=== PATIENT | male | born 1970 | race Caucasian/White ===

== ENCOUNTER 2024-06-26 12:48 | Outpatient (REF) | payer OTHER, SELFPAY ==
--- NOTE | ~2024-06-26 | MR_ITS ---
EXAMINATION: MR LUMBAR SPINE WITHOUT CONTRAST CLINICAL INFORMATION: Degenerative disc disease, most pronounced at L4-5 COMPARISON: None available. TECHNIQUE: MRI of the lumbar spine was obtained using routine sequences without contrast. FINDINGS: There are 5 nonrib-bearing lumbar-type vertebrae. Mild levocurvature of the lumbar spine. Mild retrolisthesis at L3-4 and L5-S1. Diffuse edema involving the opposing L4 and L5 vertebrae with abnormal signal extending into the disc space at this level as well as the pedicles bilaterally. There is abnormal signal and thickening extending into the ventral epidural space at this level. The vertebral body heights are preserved. Multilevel disc desiccation with severe disc height loss at L4-5. Multilevel endplate osteophytosis. The visualized spinal cord is normal in caliber. No abnormal cord signal. The conus medullaris terminates at L1. T12-L1: Small disc bulge. No significant spinal canal or neural foraminal narrowing. L1-2: No significant spinal canal or neural foraminal narrowing. L2-3: Diffuse disc bulge and bilateral facet arthrosis. No significant spinal canal or neural foraminal narrowing. L3-4: Diffuse disc bulge and bilateral facet arthrosis. No significant spinal canal stenosis. Mild right neural foraminal narrowing. L4-5: Diffuse disc bulge, ligamentum flavum hypertrophy, and bilateral facet arthrosis. Mild spinal canal stenosis. Moderate to severe right and moderate left neural foraminal narrowing with the disc abutting the exiting L4 nerve roots bilaterally. L5-S1: Diffuse disc bulge and left facet arthrosis. Moderate to severe left and mild right neural foraminal narrowing with the disc abutting the exiting L5 nerve roots bilaterally. No significant spinal canal stenosis. The paravertebral soft tissues are unremarkable. MR/MR lumbar spine wo con IMPRESSION: 1. Diffuse edema involving the opposing L4 and L5 vertebrae and pedicles with abnormal signal extending into the disc space at this level. Additionally, there is abnormal signal and thickening extending into the ventral epidural space at this level. Findings are concerning for discitis osteomyelitis in the appropriate clinical setting. Reactive degenerative changes can also have this appearance. 2. Multilevel lumbar spondylosis as described above, most pronounced at L4-5 where there is mild spinal canal stenosis and moderate to severe right and moderate left neural foraminal narrowing with the disc abutting the exiting L4 nerve roots bilaterally. 3. At L5-S1, there is moderate to severe left and mild right neural foraminal narrowing with the disc abutting the exiting L5 nerve roots bilaterally. Electronically signed by: Fercho Wells MD 06/26/2024 03:39 PM [facility]
== END 2024-06-26 12:49 | disposition home or self-care (01) ==
LOC: HO.MRI 12:48
PROVIDERS: PCP Family Medicine; Visit Provider Family Medicine
DX: M51.362 Other intervertebral disc degeneration, lumbar region with discogenic back pain and lower extremity pain (principal); M54.16 Radiculopathy, lumbar region
CPT/HCPCS: 72148

== ENCOUNTER 2024-07-15 12:36 | Outpatient (AMB) | payer OTHER, SELFPAY ==
--- NOTE | 2024-07-15 12:59 | A.SPINEOV_ITS ---
Vital Signs 07/15/24 13:00 Height 5 ft 8 in Weight 165 lb BMI 25.1 Intake Visit Reasons: lumbar degenerative disc disease Intake Note: Mr. Grove is here today c/o low back pain. Time Recorder Required: No Allergies No Known Allergies Allergy (Verified 07/15/24 13:00) Physical Exam Vital Signs: BMI result Body Mass Index 25.1 Assessment & Plan Assessment & Plan (1) Osteomyelitis: Code(s): M86.9 - Osteomyelitis, unspecified Category: Medical Plan Dear Dr Casillas, Thank you for referring Mr Grove to our office today. He is a 53-year-old gentleman who has had on and off back issues for many years, who ended up with L4-5 diskitis/osteomyelitis, epidural abscess with right psoas abscess in May after what was sounds like an infected sebaceous cyst on his thigh that seated to his lumbar spine. At the time he is having fever back pain, inability to walk or move in his house. He had been to the emergency room a few times in it sounds like he was getting brushed off as a drug addict, and subsequently ended up with transfer to [facility] with diagnosis of the diskitis/osteomyelitis. While he was there, he was put on IV cefazolin and was seen by infectious disease and the neurosurgery team. He recently completed a 6 week course of antibiotics. His pain is significantly better than what it was at the time of the infection but it is not completely gone. He does not have any radicular pain going down his legs at this time. He has no loss of function of the legs. It is primarily a back pain situation. He is on OxyContin, oxycodone, gabapentin, baclofen and meloxicam to treat it. No cauda equina symptoms. 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 He had a right medial knee replacement, left middle finger amputation., and ORIF of his right forearm. Social hx: Denies any history of drug abuse, he does smoke cigarettes and marijuana daily Medications: As above, gabapentin, baclofen, meloxicam, OxyContin, oxycodone Allergies: None Physical exam: He is able to stand up out of a chair on his own, he has some limitations with right hip flexion but otherwise strength in the lower extremities is normal, reflexes 2+ at the patella, 1+ at the Achilles. No clonus. Upper extremity strength and reflexes are normal. Imaging review: There 2 lumbar MRIs, 1 from May 1 from June. Both show evidence of osteomyelitis/diskitis at L4-5 with epidural abscess. There is some resolution of the psoas abscess on the June MRI. There is compression of the left L5 nerve in the lateral recess as well as other degenerative changes causing narrowing of the foramen throughout the lumbar spine. Impression: 53-year-old male with history of chronic back issues, developed what sounds like osteomyelitis/diskitis/epidural abscess with right psoas abscess after he had an infected sebaceous cyst on his thigh which seated to that area. The infection seems to be resolving. He tells me that the his inflammatory numbers in his white count coming down closer to normal. His pain is better and he has no trouble walking because of radicular symptoms and weakness in his legs. He does have trouble with activity because of the back pain but no neurological radiculopathy type symptoms down the legs. He completed his course of 6 weeks of IV cefazolin. From the standpoint of his infection, he should continue to monitor for symptoms fever, worsening of back pain etc. but it sounds like the treatment worked well. It is hard to know what to make of the MRI done so recently because it was done in the middle of treatment and as we know the MRIs delayed by least a few weeks from the actual clinical course with diskitis/osteomyelitis. We generally recommend just trending ESR and CRP and following a clinical exam as opposed to doing more imaging in the short term. He was asking about surgery. From the standpoint of the infection, the IV antibiotics have treated that so he does not need any kind of wash out or decompression to facilitate the recovery. With regard to the chronic pain situation from the infection in his previous DDD, we would need to have many months of healing and recovery take place before we can make a surgical decision. There is still quite a bit of remodeling of the spine to take place and despite his numbers looking excellent on his lab work, there is high risk for placing instrumentation into that space. Therefore, typically we would wait many months and follow with serial imaging further down the road. I will review his imaging with Dr. Bowden to see if he has any other thoughts but usually that is the game plan and we reassess down the road. Thank you for allowing us to care for your patient. The total time spent with this visit with this patient was 45 minutes reviewing history, physical exam, lumbar imaging review, and implementation of treatment plan or further diagnostic testing Jeff Bowden MD,PhD [facility] Coding Level of Care Code New Pt Level 4 (57652) Diagnoses Osteomyelitis M86.9
[2024-07-15 13:00] VITALS: BMI 25.1
--- OUTSIDE RECORDS SUMMARY | 2024-07-17 15:28 | XMS_ITS ---
Author Name [facility] Organization Unknown Results Test Name/Text Value Interpretation Date Range Source Neutrophils num Bld Auto 8.78Thou/uL Above high normal [id number] 2 - 7.5 [facility] Monocytes num Bld Auto 1.02Thou/uL Normal [id number] 0.2 - 1.5 [facility] Eosinophil num Bld Auto 0.07Thou/uL Normal [id number] 0 - 0.7 [facility] WBC num Bld Auto 12.4Thou/uL Above high normal [id number] 4 - 11 [facility] MCHC RBC Auto-mCnc 33.9g/dL Normal 30 - 36 [facility] Monocytes/leuk NFr Bld Auto 8.3% Normal [id number] [facility] Hct VFr Bld Auto 42.2% Normal [id number] 39 - 54 [facility] RBC num Bld Auto 4.41Mil/uL Below low normal [id number] 4. 5 - 6.2 [facility] RDW RBC Auto-Rto 12.7% Normal [id number] 11.5 - 14. 5 [facility] PMV Bld Auto 9.3fL Normal [id number] 7.5 - 12.[address] Eosinophil/leuk NFr Bld Auto 0.6% Normal [id number] [facility] MCH RBC Qn Auto 32.4pg Above high normal [id number] 27 - 31 [facility] Basophils/leuk NFr Bld Auto 0.2% Normal [id number] [facility] Basophils num Bld Auto 0.03Thou/uL Normal [id number] 0 - 0.2 [facility] Platelet num Bld Auto 510Thou/uL Above high normal [id number] 150 - 450 [facility] Neutrophils/leuk NFr Bld Auto 71% Normal [id number] [facility] MCV RBC Auto 96fL Normal [id number] 80 - 100 [facility] T Lymphocytes/leuk NFr Bld Auto 19.4% Normal [id number] [facility] Lymphocytes num Bld Auto 2.4Thou/uL Normal [id number] 1.5 - 4.5 [facility] Imm Granulocytes/leuk NFr Bld Auto 0.5% Normal [id number] [facility] Hgb Bld-mCnc 14.3g/dL Normal [id number] 13 - 17.7 [facility] T Imm Granulocytes num Bld Auto 0.06Thou/uL Normal [id number] 0 - 0.1 [facility] Calcium SerPl-mCnc 9.4mg/dL Normal [id number] 8.7 - 10 .5 [facility] BUN SerPl-mCnc 15mg/dL Normal [id number] 8 - 21 HH CCT Creat SerPl-mCnc 0.7mg/dL Normal [id number] 0.5 - 1.3 [facility] GFR/BSA.pred SerPlBld [id number] 90 Normal [id number] 59 - [facility]CT Chloride SerPl-sCnc 97mmol/L Below low normal [id number] 98 - 107 [facility] BUN/Creat SerPl 21Ratio Normal [id number] 10 - 25 H HCCT CO2 SerPl-sCnc 28mmol/L Normal [id number] 22 - 33 HH CCT Anion Gap Bld-sCnc 14 Normal [id number] 7 - 17 [facility] Potassium SerPl-sCnc 4.6mmol/L Normal [id number] 3.4 - 5.3 [facility] Glucose SerPl-mCnc 110mg/dL Above high normal [id number] 65 - 99 [facility] Sodium SerPl-sCnc 139mmol/L Normal [id number] 136 - 145 [facility] RBC num Bld Auto 4.46Mil/uL Below low normal [id number] 4. 5 - 6.2 [facility] RDW RBC Auto-Rto 12.7% Normal [id number] 11.5 - 14. 5 [facility] PMV Bld Auto 9.4fL Normal [id number] 7.5 - 12.[address] MCH RBC Qn Auto 32.7pg Above high normal [id number] 27 - 31 [facility] WBC num Bld Auto 12.3Thou/uL Above high normal [id number] 4 - 11 [facility] Platelet num Bld Auto 479Thou/uL Above high normal [id number] 150 - 450 [facility] MCHC RBC Auto-mCnc 34.3g/dL Normal 30 - 36 [facility] Hct VFr Bld Auto 42.6% Normal [id number] 39 - 54 [facility] MCV RBC Auto 96fL Normal [id number] 80 - 100 [facility] T Hgb Bld-mCnc 14.6g/dL Normal [id number] 13 - 17.7 [facility] T Calcium SerPl-mCnc 9.2mg/dL Normal [id number] 8.7 - 10 .5 [facility] BUN SerPl-mCnc 16mg/dL Normal [id number] 8 - 21 HH CCT Creat SerPl-mCnc 0.7mg/dL Normal [id number] 0.5 - 1.3 [facility] GFR/BSA.pred SerPlBld [id number] 90 Normal [id number] 59 - HHCCT Chloride SerPl-sCnc 95mmol/L Below low normal [id number] 98 - 107 [facility] BUN/Creat SerPl 23Ratio Normal [id number] 10 - 25 H HCCT CO2 SerPl-sCnc 28mmol/L Normal [id number] 22 - 33 HH CCT Anion Gap Bld-sCnc 11 Normal [id number] 7 - 17 [facility]CT Potassium SerPl-sCnc 4.7mmol/L Normal [id number] 3.4 - 5.3 [facility]CT Glucose SerPl-mCnc 115mg/dL Above high normal [id number] 65 - 99 [facility]CT Sodium SerPl-sCnc 134mmol/L Below low normal [id number] 13 6 - 145 [facility]CT Vancomycin SerPl-mCnc 16mg/L Normal [id number] [facility] RBC num Bld Auto 4.32Mil/uL Below low normal [id number] 4. 5 - 6.2 [facility]CT RDW RBC Auto-Rto 12.8% Normal [id number] 11.5 - 14. 5 [facility] PMV Bld Auto 9.1fL Normal 7.5 - 12.[address] MCH RBC Qn Auto 31.9pg Above high normal 27 - 31 [facility]CT WBC num Bld Auto 13.3Thou/uL Above high normal 4 - 11 [facility] Platelet num Bld Auto 491Thou/uL Above high normal [id number] 035 150 - 450 [facility]CT MCHC RBC Auto-mCnc 33.4g/dL Normal 30 - 36 [facility] Hct VFr Bld Auto 41.3% Normal 39 - 54 [facility]CT MCV RBC Auto 96fL Normal 80 - 100 [facility] T Hgb Bld-mCnc 13.8g/dL Normal 13 - 17.7 [facility] T Time of last dose Normal H[facility]CT Calcium SerPl-mCnc 9.2mg/dL Normal 8.7 - 10 .5 [facility]CT BUN SerPl-mCnc 19mg/dL Normal 8 - 21 HH CCT Creat SerPl-mCnc 0.8mg/dL Normal 0.5 - 1.3 [facility]CT GFR/BSA.pred SerPlBld [id number] 90 Normal [id number] 59 - HHCCT Chloride SerPl-sCnc 99mmol/L Normal [id number] 98 - 10 7 [facility]CT BUN/Creat SerPl 24Ratio Normal 10 - 25 H HCCT CO2 SerPl-sCnc 25mmol/L Normal 22 - 33 HH CCT Anion Gap Bld-sCnc 14 Normal 7 - 17 [facility]CT Potassium SerPl-sCnc 4.3mmol/L Normal 3.4 - 5.3 [facility]CT Glucose SerPl-mCnc 87mg/dL Normal [id number] 65 - 99 [facility] Sodium SerPl-sCnc 138mmol/L Normal [id number] 136 - 145 [facility]CT Vancomycin SerPl-mCnc 20mg/L Normal [id number] [facility] RBC num Bld Auto 4.73Mil/uL Normal 4.5 - 6.2 [facility] RDW RBC Auto-Rto 13.6% Normal 11.5 - 14. 5 [facility] PMV Bld Auto 8.9fL Normal 7.5 - 12.[address] MCH RBC Qn Auto 31.5pg Above high normal 27 - 31 [facility]CT WBC num Bld Auto 15Thou/uL Above high normal 4 - 11 [facility] Platelet num Bld Auto 486Thou/uL Above high normal [id number] 150 - 450 [facility]CT MCHC RBC Auto-mCnc 33.3g/dL Normal 30 - 36 [facility]CT Hct VFr Bld Auto 44.8% Normal 39 - 54 [facility]CT MCV RBC Auto 95fL Normal 80 - 100 [facility] T Hgb Bld-mCnc 14.9g/dL Normal 13 - 17.7 [facility] T Time of last dose Normal [id number] H[facility]CT HBV surface Ag Ser Ql Normal [id number] - CCT HIV 1+2 Ab+HIV1 p24 Ag Ser EIA-aCnc Normal [id number] - HHCCT Hepatitis C Ab Interpretation Normal [id number] - CCT HCV Ab s/co SerPl EIA 0.11S/COratio Normal [id number] 0 - 0.79 [facility]CT Calcium SerPl-mCnc 9.4mg/dL Normal [id number] 8.7 - 10 .5 [facility]CT BUN SerPl-mCnc 18mg/dL Normal [id number] 8 - 21 HH CCT Creat SerPl-mCnc 0.7mg/dL Normal [id number] 0.5 - 1.3 [facility]CT GFR/BSA.pred SerPlBld [id number] 90 Normal [id number] 59 - HHCCT Chloride SerPl-sCnc 96mmol/L Below low normal [id number] 98 - 107 [facility] BUN/Creat SerPl 26Ratio Above high normal [id number] 10 - 25 [facility]CT CO2 SerPl-sCnc 27mmol/L Normal [id number] 22 - 33 HH CCT Anion Gap Bld-sCnc 15 Normal [id number] 7 - 17 [facility]CT Potassium SerPl-sCnc 4.1mmol/L Normal [id number] 3.4 - 5.3 [facility]CT Glucose SerPl-mCnc 117mg/dL Above high normal [id number] 65 - 99 [facility]CT Sodium SerPl-sCnc 138mmol/L Normal [id number] 136 - 145 [facility] Neutrophils num Bld Auto 14.33Thou/uL Above high normal [id number] 2 - 7.5 [facility]CT Monocytes num Bld Auto 1.62Thou/uL Above high normal [id number] 0.2 - 1.5 [facility]CT Eosinophil num Bld Auto 0.02Thou/uL Normal [id number] 0 - 0.7 [facility] WBC num Bld Auto 18.4Thou/uL Above high normal [id number] 4 - 11 [facility] MCHC RBC Auto-mCnc 34.7g/dL Normal [id number] 30 - 36 [facility] Monocytes/leuk NFr Bld Auto 8.8% Normal [id number] H[facility]CT Hct VFr Bld Auto 43% Normal [id number] 39 - 54 [facility] RBC num Bld Auto 4.64Mil/uL Normal [id number] 4.5 - 6.2 [facility]CT RDW RBC Auto-Rto 13.4% Normal [id number] 11.5 - 14. 5 [facility] PMV Bld Auto 9.3fL Normal [id number] 7.5 - 12.[address] Eosinophil/leuk NFr Bld Auto 0.1% Normal [id number] [facility]CT MCH RBC Qn Auto 32.1pg Above high normal [id number] 27 - 31 [facility] Basophils/leuk NFr Bld Auto 0.4% Normal [id number] [facility] Basophils num Bld Auto 0.08Thou/uL Normal [id number] 0 - 0.2 [facility] Platelet num Bld Auto 485Thou/uL Above high normal [id number] 150 - 450 [facility] Neutrophils/leuk NFr Bld Auto 77.9% Normal [id number] [facility] MCV RBC Auto 93fL Normal [id number] 80 - 100 [facility] T Lymphocytes/leuk NFr Bld Auto 11.1% Normal [id number] [facility]CT Lymphocytes num Bld Auto 2.05Thou/uL Normal [id number] 1.5 - 4.5 [facility] Imm Granulocytes/leuk NFr Bld Auto 1.7% Normal [id number] [facility]CT Hgb Bld-mCnc 14.9g/dL Normal 13 - 17.7 [facility] T Imm Granulocytes num Bld Auto 0.31Thou/uL Above high normal 0 - 0.1 [facility] Result Normal [id number] - HHCCT AST SerPl-cCnc 20U/L Normal [id number] 10 - 55 HH CCT ALT SerPl-cCnc 32U/L Normal [id number] 10 - 55 HH CCT Creat SerPl-mCnc 0.7mg/dL Normal [id number] 0.5 - 1.3 [facility]CT Globulin Ser Calc-mCnc 3.9g/dL Normal [id number] 1.5 - 3.9 [facility]CT CO2 SerPl-sCnc 26mmol/L Normal [id number] 22 - 33 HH CCT Albumin/Glob SerPl 0.9Ratio Below low normal [id number] 1 - 3 [facility] Anion Gap Bld-sCnc 15 Normal [id number] 7 - 17 [facility]CT Potassium SerPl-sCnc 4.1mmol/L Normal [id number] 3.4 - 5.3 H[facility]CT Bilirub SerPl-mCnc 0.2mg/dL Normal [id number] 0.2 - 1 [facility]CT Calcium SerPl-mCnc 9.4mg/dL Normal [id number] 8.7 - 10 .5 [facility]CT BUN SerPl-mCnc 16mg/dL Normal [id number] 8 - 21 HH CCT ALP SerPl-cCnc 84U/L Normal [id number] 45 - 128 HH CCT GFR/BSA.pred SerPlBld [id number] 90 Normal [id number] 59 - HHCCT Chloride SerPl-sCnc 97mmol/L Below low normal [id number] 98 - 107 [facility]CT BUN/Creat SerPl 23Ratio Normal [id number] 10 - 25 H HCCT Albumin SerPl-mCnc 3.4g/dL Below low normal [id number] 3 .5 - 5 H[facility]CT Prot SerPl-mCnc 7.3g/dL Normal [id number] 6.3 - 8.3 H HCCT Glucose SerPl-mCnc 105mg/dL Above high normal [id number] 65 - 99 [facility]CT Sodium SerPl-sCnc 138mmol/L Normal [id number] 136 - 145 [facility]CT Magnesium SerPl-mCnc 2mg/dL Normal [id number] 1.6 - 2.7 HHCCT INR PPP 1.2 Normal [id number] H[facility]CT Prothrombin time 13.6seconds Above high normal [id number] 10 - 13.5 [facility]CT Neutrophils num Bld Auto 11.67Thou/uL Above high normal [id number] 2 - 7.5 [facility]CT Monocytes num Bld Auto 1.5Thou/uL Normal [id number] 0.2 - 1.5 [facility]CT Eosinophil num Bld Auto 0.02Thou/uL Normal [id number] 0 - 0.7 H[facility]CT WBC num Bld Auto 16.1Thou/uL Above high normal [id number] 4 - 11 [facility] MCHC RBC Auto-mCnc 35.3g/dL Normal [id number] 30 - 36 [facility]CT Monocytes/leuk NFr Bld Auto 9.3% Normal [id number] HHCCT Hct VFr Bld Auto 41.6% Normal [id number] 39 - 54 [facility] RBC num Bld Auto 4.47Mil/uL Below low normal [id number] 4. 5 - 6.2 H[facility]CT RDW RBC Auto-Rto 13.4% Normal [id number] 11.5 - 14. 5 [facility]CT PMV Bld Auto 9.1fL Normal [id number] 7.5 - 12.[address] Eosinophil/leuk NFr Bld Auto 0.1% Normal [id number] H[facility]CT MCH RBC Qn Auto 32.9pg Above high normal [id number] 27 - 31 [facility] Basophils/leuk NFr Bld Auto 0.2% Normal [id number] [facility] Basophils num Bld Auto 0.03Thou/uL Normal [id number] 0 - 0.2 HHT Platelet num Bld Auto 397Thou/uL Normal [id number] 150 - 450 [facility] Neutrophils/leuk NFr Bld Auto 72.7% Normal [id number] [facility] MCV RBC Auto 93fL Normal [id number] 80 - 100 [facility] T Lymphocytes/leuk NFr Bld Auto 16.4% Normal [id number] [facility] Lymphocytes num Bld Auto 2.64Thou/uL Normal [id number] 1.5 - 4.5 [facility] Imm Granulocytes/leuk NFr Bld Auto 1.3% Normal [id number] [facility] Hgb Bld-mCnc 14.7g/dL Normal [id number] 13 - 17.7 [facility] T Imm Granulocytes num Bld Auto 0.21Thou/uL Above high normal [id number] 0 - 0.1 HHT Anticoagulant NO ANTI COAGULANT MEDS Normal [id number] [facility]
== END 2024-07-15 14:01 | disposition home or self-care (01) ==
PROVIDERS: PCP Family Medicine; Referring Provider Family Medicine; Visit Provider Physician Assistant
DX: M86.9 Osteomyelitis, unspecified (principal)
CPT/HCPCS: 99204

== ENCOUNTER → 2024-07-15 12:36 | Outpatient (BNVA) | payer OTHER, SELFPAY | PROVIDERS: PCP Family Medicine; Referring Provider Family Medicine; Visit Provider Physician Assistant | DX: M86.9 Osteomyelitis, unspecified (principal) | CPT/HCPCS: 99202 ==

== ENCOUNTER 2024-07-16 13:10 | Outpatient (REF) | payer OTHER, SELFPAY | END 2024-07-16 13:11 | disposition home or self-care (01) | LOC: HO.HOSX 13:10 | PROVIDERS: Visit Provider Physician Assistant | DX: Z13.89 Encounter for screening for other disorder (principal) ==

== ENCOUNTER 2025-03-10 10:54 | Outpatient (AMB) | payer OTHER, SELFPAY ==
--- NOTE | 2025-03-10 11:27 | A.SPINEOV_ITS ---
Intake Visit Reasons: Six mo f/u w/x-rays Intake Note: Mr. Grove is here today for his 6 month f/u with x-rays. Heat And Vent Aircraft Mechanic Required: No Allergies No Known Allergies Allergy (Verified 07/15/24 13:00) Assessment & Plan Assessment & Plan (1) Osteomyelitis: Code(s): M86.9 - Osteomyelitis, unspecified Category: Medical Plan Jaiden is a pleasant 54-year-old male who comes in today for his follow-up visit after previously being evaluated in clinic by LEYLA Whalen. To recap he has a history of atraumatic osteomyelitis/diskitis that sounded like it occurred secondary to a psoas abscess. He was treated with 6 weeks of antibiotics, in his symptoms began to improve. He was referred to us for clinical recommendations regarding this infection. Today, he states that his pain has very much so resolved compared to the last time he was seen in our clinic. He is no longer suffering from severe daily pain. He has returned to work, is completing yard work at his home, and physical activity without significant issue. Considering that Jaiden currently is reporting little to no pain and has functionally recovered, I do not believe that there is any role for neurosurgery at this time. If he does have a recurrence of his pain, he may schedule a follow up appointment in the future. Nirav Bowden MD,PhD [facility] Coding Level of Care Code Est Pt Level 2 (05501) Diagnoses Osteomyelitis M86.9
--- OUTSIDE RECORDS SUMMARY | 2025-03-10 11:52 | XMS_ITS | Encounter Summary ---
Author Organization [facility] Address [address] [place] [id number] Phone Care Team Providers Care Transmission Repairer Name Role Phone Maude Almazan MD Primary Care Provider [phone] Encounter Details Date Type Department Care Team (Late st Contact Info) Description 06/05/2024 Procedure Pass [facility] [address] [place] [address] Social History Tobacco Use Types Packs/Day Years Used Date Smoking Tobacco: Every Day Cigarettes 0.5 40 Started: 07/03/1981; Last attempted to quit: 07/03/2021 Smokeless Tobacco: Never Comments:weaned down to stop Alcohol Use Standard Drinks/Week Comments Never 0 (1 standard drink = 0.6 oz pur e alcohol) Education Answer Date Recorded Are you interested in more education? Not on donavon e 12/01/2022 Are you concerned about learning? Not on file 12/01/2022 No 12/01/2022 No 12/01/2022 Digital Access Answer Date Recorded No 12/31/2022 No 12/31/2022 Reliable internet access at home? Not on file 12/31/2022 Device with a working camera? Not on file Intimate Partner Violence Answer Date R ecorded Are you denied basic needs s uch as food, clothing, or medical care? No 05/27/2024 In the past 12 months have y ou been in a relationship with a person who hurts, threatens, or tries to control you? No 05/27/2024 Are you denied basic needs s uch as food, clothing, or medical care? No 05/27/2024 In the past 12 months have y ou been in a relationship with a person who hurts, threatens, or tries to control you? No 05/27/2024 Sex and Gender Information Value Date Recorded Sex Assigned at Male 05/27/2024 1:57 PM EDT Legal Sex Male 6:19 PM EST Gender Identity Male 05/27/2024 1:57 PM EDT Sexual Orientation Not on file documented as of this encounter Plan of Treatment Not on file documented as of this encounter Visit Diagnoses Not on filedocumented in this encounter Additional Health Concerns Infection Onset Date Last Indicated Resolved Time CoV-Risk 05/27/2024 05/27/2024 06/07/2024 1:25 AM EDT documented as of this encounter Care Teams Transmission Repairer Relationship Specialty Start Date End Date Maude Almazan MD [address] [place] [phone] [email or web address] PCP - General Internal Medicine 04/16/21 documented as of this encounter Additional Source Comments The information contained in this document represents components of the legal health record. It is not the complete legal health record.[facility]
--- OUTSIDE RECORDS SUMMARY | 2025-03-10 11:52 | XMS_ITS | Clinical Summary ---
Author Organization [facility] Address [address] [place] [address] Care Team Providers Care Examining Officer Name Role Phone Unavailable Primary Care Provider Unavailabl e Allergies Active Allergy Reactions Criticality Noted Date Comments Aspirin GI Intolerance/Nausea/Vomit ing Low 05/28/2024 Patient gets stomach aches but tolerated after knee surgery, had problems with jed brand Medications atorvastatin (LIPITOR) 10 MG tablet Take 1 tablet (10 mg total) by mouth every morning. 03/26/2024 Active baclofen (LIORESAL) 10 MG tablet Take 1 tablet (10 mg total) by mouth 2 (two) times a day. 10/25/2023 Active HYDROcodone-lj taminophen (NORCO) 10-325 mg per tablet Take 1 tablet by mouth 4 times daily (every 6 hours) as needed for moderate pain. 05/15/2024 Active lisinopril (PRINIVIL,ZeSTR IL) 20 MG tablet Take 1 tablet (20 mg total) by mouth daily. 11/10/2023 Active gabapentin (NEURONTIN) 600 MG tabletIndicatio ns:Osteomyeliti s (HCC),Epidural abscess Take 1 tablet (600 mg total) by mouth 3 (three) times a day. 90 tablet 06/05/2024 Active senna-docusate (SENNA-S) 8.6-50 MGIndications:O steomyelitis (HCC),Epidural abscess Take 2 tablets by mouth nightly as needed for constipation. 30 tablet 06/05/2024 Active lidocaine (LIDODERM) 5 % patchIndication s:Osteomyelitis (HCC),Epidural abscess Place 1 patch on the skin daily. Apply patch and leave on for 12 hours then remove. Patch may remain on skin for 12 hours per day. 30 patch 06/06/2024 Active oxyCODONE (OxyCONTIN) 10 MG ER (extended release) tabletIndicatio ns:Osteomyeliti s (HCC),Epidural abscess Take 1 tablet (10 mg total) by mouth every 12 (twelve) hours around the clock. Max Daily Amount: 20 mg 6 tablet 06/05/2024 Active Active Problems Problem Noted Date Diagnosed Date Obesity (BMI 30.0-34.9) 05/29/2024 Psoas abscess, right 05/29/2024 Epidural abscess 05/29/2024 Vertebral abscess 05/29/2024 Compression of spinal nerve root 05/29/2024 Lumbar radiculitis 05/29/2024 Acute right-sided back pain 05/29/2024 Acute right-sided low back pain with sciatica Cervical radiculopathy due t o degenerative joint disease of spine 08/17/2022 Cigarette nicotine dependence without complicati on 08/17/2022 Hyperlipidemia 08/17/2022 Hypertension 08/17/2022 Left sided sciatica 08/17/2022 Spinal compression fracture 08/17/2022 Piriformis syndrome of left side 08/17/2022 S/P right unicompartmental knee replacement 06/09 Calculus of kidney 12/03/2019 Tendonitis of shoulder, left 12/03/2019 Nicotine dependence 07/10/2019 Laceration involving tendon 08/28/2013 Overview (05/29/2024): Tendon laceration Oct IMO Regulatory Release Diagnosis Update Tendon laceration Oct IMO Regulatory Release Diagnosis Update Immunizations Immunization Administration Dates Next Due Influenza Virus Trivalent Split Vaccine (MDV) IM 04/25/2021 Influenza, Quadrivalent 05/03/2023 Influenza, Unspecified 05/07/2013 Tdap 12/03/2021 Family History Medical History Relation Name Comments Bipolar disorder Brother Bipolar disorder Father Diabetes Maternal Grandmother Emphysema Maternal Grandmother Hypertension Maternal Grandmother Bipolar disorder Mother Relation Name Status Comments Brother Father Maternal Grandmother Mother Social History Tobacco Use Types Packs/Day Years Used Date Smoking Tobacco: Never Assessed [facility] Utilities Answer Date Recorded In the past 12 months has th e electric, gas, oil, or water company threatened to shut off services in your home? No 06/03/2024 AUDIT-C Answer Date Recorded Q1: How often do you have a drink containing alc ohol? Monthly or less 05/29/2024 Q2: How many drinks containi ng alcohol do you have on a typical day when you are drinking? 1 or 2 05/29/2024 Q3: How often do you have si x or more drinks on one occasion? Never 05/29/2024 Overall Financial Resource Strain (CARDIA) Answe r Date Recorded How hard is it for you to pa y for the very basics like food, housing, medical care, and heating? Not very hard 06/03/2024 PHQ-2 Answer Date Recorded PHQ-2 Total Score 0 05/29/2024 Hunger Vital Sign Answer Date Recorded Within the past 12 months, y ou worried that your food would run out before you got the money to buy more. Never true 06/03/20 24 Within the past 12 months, t he food you bought just didn't last and you didn't have money to get more. Never true 06/03/2024 PRAPARE - Transportation Answer Date Re corded In the past 12 months, has l ack of transportation kept you from medical appointments or from getting medications? No 05/08 In the past 12 months, has l ack of transportation kept you from meetings, work, or from getting things needed for daily living? No 06/03/2024 Housing Stability Vital Sign Answer Perico e Recorded In the last 12 months, was t here a time when you were not able to pay the mortgage or rent on time? No 06/03/2024 In the past 12 months, how m any times have you moved where you were living? 1 06/03/2024 At any time in the past 12 m [facility], were you homeless or living in a correction (including now)? No 06/03/2024 Sex and Gender Information Value Date Recorded Sex Assigned at Male 05/29/2024 12:18 AM EDT Legal Sex Male 8:32 PM EDT Gender Identity Male 05/29/2024 12:18 AM EDT Sexual Orientation Heterosexual (straight) 05/29 12:18 AM EDT Last Filed Vital Signs Vital Sign Reading Time Taken Comments Blood Pressure 107/68 06/05/2024 8:00 AM EDT Pulse 72 06/05/2024 8:00 AM EDT Temperature 36.4 C (97.6 F) 06/05/2024 8:00 AM EDT Respiratory Rate 20 06/05/2024 8:00 AM EDT Oxygen Saturation 96% 06/05/2024 8:00 AM EDT Inhaled Oxygen Concentration - - Weight 72.6 kg (160 lb) 06/04/2024 8:40 AM EDT Height 172.7 cm (5' 8 ) 06/04/2024 8:40 AM EDT Body Mass Index 24.33 06/04/2024 8:40 AM EDT Plan of Treatment Health Maintenance Due Date Last Done Comments Hepatitis B Vaccines (1 of 3 - 19+ 3-dose series) 1990 Pneumococcal Vaccines 50+ (1 of 2 - PCV) 1990 Colonoscopy 2016 Zoster (Shingles) Vaccine (1 of 2) 2021 COVID-19 Vaccine ( season) 2024 05/08/2021, 12/07/2020, 11/16/2020 Influenza Vaccine 03/07/2025 05/03/2023, , 05/07/2013 DTaP/Tdap/Td Vaccines (2 - T d or Tdap) 12/04/2031 12/03/2021 HIV Screening Completed 05/29/2024, 03/08/2021 Hepatitis C Virus Screening Completed 05/29/2024 Procedures Procedure Name Priority Date/Time Associated Diagnosis Comments HIV 1/2 AG/AB CMIA REFLEX TO CONFIRMATION Routine 05/29/2024 6:37 PM EDT HEPATITIS C ANTIBODY REFLEX HCV RT-PCR, QUANT Routine 05/29/2024 6:37 PM EDT from Last 3 Months or Most Recently Relevant to Health Maintenance Results * Hepatitis C Antibody reflex HCV RT-PCR, Quant (05/29/2024 6:37 PM EDT) Hepatitis C Antibody 0.11 0.00 - 0.79 S/CO ratio 05/30/2024 10:38 AM EDT [facility] Hepatitis C Antibody Interpretation Nonreactive Nonreactive 05/30/2024 10:38 AM EDT [facility] Comment:Antibodies to HCV no t detected. This does not exclude the possibility of exposure to HCV. Blood (Plasma/Serum) 05/29/2024 6:37 PM EDT 05/29/2024 6:47 PM EDT Cielo Huerta MD LAB BLOOD ORDERABLES Final Resul t Performing Organization Address [facility] Co de Phone Number [facility] [address] * HIV 1/2 Ag/Ab CMIA Reflex to Confirmation (05/29/2024 6:37 PM EDT) HIV 1/2 Ag/Ab CMIA Nonreactive Nonreactive 05/30/2024 10:38 AM EDT [facility] Comment: Results show no evidence of infection by HIV 1/2. If clinically indicated, repeat CMIA or test by nucleic acid amplification. HIV 1/2 Antigen/Antibody CMIA reflex to confirmation AND HIV-1 RNA viral load recommended in patients who are taking or have recently taken PrEP. Blood Serum specimen / Unknown 05/29/2024 6:37 PM EDT 05/29/2024 6:47 PM EDT Cielo Huerta MD LAB BLOOD ORDERABLES Final Resul t Performing Organization Address [facility] Co de Phone Number [facility] [address] from Last 3 Months or Most Recently Relevant to Health Maintenance Insurance [facility] Advance Directives * Full Code (Latest Code Status on File) Date Activated Date Inactivated Comments 05/29/2024 12:47 AM
--- OUTSIDE RECORDS SUMMARY | 2025-03-10 11:52 | XMS_ITS | Encounter Summary ---
Author Organization [facility] Address [address] [place] [address] Care Team Providers Care Young Adult Librarian Name Role Phone Kianna Woods Primary Care Provider Un available Whitnye Casillas MD Primary Care Provider [phone] Lorrie Jessica Unavailable Unavailable Reason for Visit * Reason Comments Med Refill Encounter Details Date Type Department Care Team (Late st Contact Info) Description 02/23/2023 Refill [facility] MEDICAL [address] [place] [address] Kianna Woods FNP Other chronic pain Social History Tobacco Use Types Packs/Day Years Used Date Smoking Tobacco: Every Day Cigarettes Passive Smoke Exposure: Current Smokeless Tobacco: Never Comments:Less than half a pa ck started wearing the patch about two weeks ago Alcohol Use Standard Drinks/Week Comments Not Currently 0 (1 standard drink = 0.6 oz pur e alcohol) PHQ-2 Answer Date Recorded Patient Health Questionnaire-2 Score 0 09/20/2022 Depression Answer Date Recorded Patient Health Questionnaire-2 Score 0 09/20/2022 Sex and Gender Information Value Date Recorded Sex Assigned at Male 08/26/2022 10:26 AM EST Legal Sex Male 8:39 PM EDT Gender Identity Male 08/26/2022 10:26 AM EST Sexual Orientation Straight 09/17/2022 3: 58 PM EST 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 Not on donavon e Not on file documented as of this encounter Miscellaneous Notes * Telephone Encounter - Leydi Mack PA-C - 02/24/2023 9:35 AM EDT Duplicate documented in this encounter Plan of Treatment Not on file documented as of this encounter Visit Diagnoses Diagnosis Other chronic pain documented in this encounter Care Teams Young Adult Librarian Relationship Specialty Start Date End Date Kianna Woods FNP PCP - General Family Medicine 08/17/22 03/08/23 Whitney Casillas MD [address] [place] [address] PCP - General Family Medicine 03/09/23 Lorrie Jessica Health Navigator 05/15/24 documented as of this encounter
--- OUTSIDE RECORDS SUMMARY | 2025-03-10 11:52 | XMS_ITS ---
Author Name [facility] Organization Unknown Results Test Name/Text Value Interpretation Date Range Source MCHC RBC Auto-mCnc 33.9 g/dL Normal 06/04/2024 30 - 36 [facility] MCH RBC Qn Auto 32.4 pg Above high normal 06/04/2024 27 - 31 [facility] Neutrophils/leuk NFr Bld Auto 71.0 % Normal 06/04/2024 [facility] RDW RBC Auto-Rto 12.7 % Normal 06/04/2024 11.5 - 14.5 [facility] Basophils num Bld Auto 0.03 Thou/uL Normal 06/04/2024 0 - 0.2 [facility] Platelet num Bld Auto 510.0 Thou/uL Above high normal 2023 150 - 450 [facility] WBC num Bld Auto 12.4 Thou/uL Above high normal 06/04/2024 4 - 11 [facility] PMV Bld Auto 9.3 fL Normal 06/04/2024 7.5 - 12.5 [facility] Lymphocytes num Bld Auto 2.4 Thou/uL Normal 06/04/2024 1.5 - 4.5 [facility] Imm Granulocytes num Bld Auto 0.06 Thou/uL Normal 06/04/2024 0 - 0.1 [facility] Monocytes/leuk NFr Bld Auto 8.3 % Normal 06/04/2024 H[facility]CT Hct VFr Bld Auto 42.2 % Normal 06/04/2024 39 - 54 HH CCT Lymphocytes/leuk NFr Bld Auto 19.4 % Normal 06/04/2024 [facility] Eosinophil num Bld Auto 0.07 Thou/uL Normal 06/04/2024 0 - 0.7 [facility]CT Basophils/leuk NFr Bld Auto 0.2 % Normal 06/04/2024 H[facility] RBC num Bld Auto 4.41 Mil/uL Below low normal 06/04/2024 4.5 - 6.2 H[facility]CT Neutrophils num Bld Auto 8.78 Thou/uL Above high normal 06/04/2024 2 - 7.5 H[facility] Imm Granulocytes/leuk NFr Bld Auto 0.5 % Normal 06/04/2024 H[facility] MCV RBC Auto 96.0 fL Normal 06/04/2024 80 - 100 [facility] Hgb Bld-mCnc 14.3 g/dL Normal 06/04/2024 13 - 17.7 H[facility]CT Eosinophil/leuk NFr Bld Auto 0.6 % Normal 06/04/2024 [facility] Monocytes num Bld Auto 1.02 Thou/uL Normal 06/04/2024 0.2 - 1.5 HHCCT GFR/BSA.pred SerPlBld [id number] >90.0 Normal 06/03/2024 59 - HHCCT BUN SerPl-mCnc 15.0 mg/dL Normal 06/03/2024 8 - [address] Calcium SerPl-mCnc 9.4 mg/dL Normal 06/03/2024 8.7 - 10.5 HHCCT Chloride SerPl-sCnc 97.0 mmol/L Below low normal 06/03/2024 98 - 107 HHCCT Sodium SerPl-sCnc 139.0 mmol/L Normal 06/03/2024 136 - 14 5 H[facility]CT BUN/Creat SerPl 21.0 Ratio Normal 06/03/2024 10 - 25 HH CCT Potassium SerPl-sCnc 4.6 mmol/L Normal 06/03/2024 3.4 - 5 .3 HHCCT CO2 SerPl-sCnc 28.0 mmol/L Normal 06/03/2024 22 - 33 HH CCT Glucose SerPl-mCnc 110.0 mg/dL Above high normal 06/03/2024 65 - 99 H[facility]CT Anion Gap Bld-sCnc 14.0 Normal 06/03/2024 7 - 17 HHCCT Creat SerPl-mCnc 0.7 mg/dL Normal 06/03/2024 0.5 - 1.3 HH CCT MCHC RBC Auto-mCnc 34.3 g/dL Normal 06/03/2024 30 - 36 H[facility]CT WBC num Bld Auto 12.3 Thou/uL Above high normal 06/03/2024 4 - 11 [facility]CT Platelet num Bld Auto 479.0 Thou/uL Above high normal 2023 150 - 450 H[facility]CT RDW RBC Auto-Rto 12.7 % Normal 06/03/2024 11.5 - 14.5 HHCCT MCH RBC Qn Auto 32.7 pg Above high normal 06/03/2024 27 - 31 HHCCT MCV RBC Auto 96.0 fL Normal 06/03/2024 80 - 100 HHCCT Hct VFr Bld Auto 42.6 % Normal 06/03/2024 39 - 54 HH CCT Hgb Bld-mCnc 14.6 g/dL Normal 06/03/2024 13 - 17.7 HHCCT RBC num Bld Auto 4.46 Mil/uL Below low normal 06/03/2024 4.5 - 6.2 HHCCT PMV Bld Auto 9.4 fL Normal 06/03/2024 7.5 - 12.5 HHCCT Glucose SerPl-mCnc 115.0 mg/dL Above high normal 06/02/2024 65 - 99 HHCCT Creat SerPl-mCnc 0.7 mg/dL Normal 06/02/2024 0.5 - 1.3 HH CCT GFR/BSA.pred SerPlBld [id number] >90.0 Normal 06/02/2024 59 - HHCCT Sodium SerPl-sCnc 134.0 mmol/L Below low normal 06/02/2024 1 36 - 145 H[facility]CT BUN/Creat SerPl 23.0 Ratio Normal 06/02/2024 10 - 25 HH CCT Chloride SerPl-sCnc 95.0 mmol/L Below low normal 06/02/2024 98 - 107 HHCCT Anion Gap Bld-sCnc 11.0 Normal 06/02/2024 7 - 17 HHCCT Potassium SerPl-sCnc 4.7 mmol/L Normal 06/02/2024 3.4 - 5 .3 HHCCT CO2 SerPl-sCnc 28.0 mmol/L Normal 06/02/2024 22 - 33 HH CCT BUN SerPl-mCnc 16.0 mg/dL Normal 06/02/2024 8 - [address] Calcium SerPl-mCnc 9.2 mg/dL Normal 06/02/2024 8.7 - 10.5 HHCCT Vancomycin SerPl-mCnc 16.0 mg/L Normal 06/02/2024 HHCCT Time of last dose Information not given Normal 06/02/2024 HHCCT MCHC RBC Auto-mCnc 33.4 g/dL Normal 06/02/2024 30 - 36 HHCCT RBC num Bld Auto 4.32 Mil/uL Below low normal 06/02/2024 4.5 - 6.2 HHCCT RDW RBC Auto-Rto 12.8 % Normal 06/02/2024 11.5 - 14.5 HHCCT PMV Bld Auto 9.1 fL Normal 06/02/2024 7.5 - 12.5 HHCCT WBC num Bld Auto 13.3 Thou/uL Above high normal 06/02/2024 4 - 11 [facility]CT Platelet num Bld Auto 491.0 Thou/uL Above high normal 2023 150 - 450 H[facility]CT MCV RBC Auto 96.0 fL Normal 06/02/2024 80 - 100 H[facility]CT MCH RBC Qn Auto 31.9 pg Above high normal 06/02/2024 27 - 31 HHCCT Hct VFr Bld Auto 41.3 % Normal 06/02/2024 39 - 54 HH CCT Hgb Bld-mCnc 13.8 g/dL Normal 06/02/2024 13 - 17.7 HHCCT BUN/Creat SerPl 24.0 Ratio Normal 05/31/2024 10 - 25 HH CCT Creat SerPl-mCnc 0.8 mg/dL Normal 05/31/2024 0.5 - 1.3 HH CCT Sodium SerPl-sCnc 138.0 mmol/L Normal 05/31/2024 136 - 14 5 HHCCT CO2 SerPl-sCnc 25.0 mmol/L Normal 05/31/2024 22 - 33 HH CCT Chloride SerPl-sCnc 99.0 mmol/L Normal 05/31/2024 98 - 10 7 HHCCT BUN SerPl-mCnc 19.0 mg/dL Normal 05/31/2024 8 - [address] Glucose SerPl-mCnc 87.0 mg/dL Normal 05/31/2024 65 - 99 H[facility]CT Potassium SerPl-sCnc 4.3 mmol/L Normal 05/31/2024 3.4 - 5 .3 HHCCT Anion Gap Bld-sCnc 14.0 Normal 05/31/2024 7 - 17 HHCCT Calcium SerPl-mCnc 9.2 mg/dL Normal 05/31/2024 8.7 - 10.5 HHCCT GFR/BSA.pred SerPlBld [id number] >90.0 Normal 05/31/2024 59 - HHCCT Vancomycin SerPl-mCnc 20.0 mg/L Normal 05/31/2024 HHCCT Time of last dose Information not given Normal 05/31/2024 HHCCT MCV RBC Auto 95.0 fL Normal 05/31/2024 80 - 100 H[facility]CT Hgb Bld-mCnc 14.9 g/dL Normal 05/31/2024 13 - 17.7 HHCCT Platelet num Bld Auto 486.0 Thou/uL Above high normal 2023 150 - 450 [facility]CT RDW RBC Auto-Rto 13.6 % Normal 05/31/2024 11.5 - 14.5 HHCCT MCHC RBC Auto-mCnc 33.3 g/dL Normal 05/31/2024 30 - 36 HHCCT MCH RBC Qn Auto 31.5 pg Above high normal 05/31/2024 27 - 31 HHCCT PMV Bld Auto 8.9 fL Normal 05/31/2024 7.5 - 12.5 HHCCT Hct VFr Bld Auto 44.8 % Normal 05/31/2024 39 - 54 HH CCT WBC num Bld Auto 15.0 Thou/uL Above high normal 05/31/2024 4 - 11 HHCCT RBC num Bld Auto 4.73 Mil/uL Normal 05/31/2024 4.5 - 6.2 HHCCT Calcium SerPl-mCnc 9.4 mg/dL Normal 05/30/2024 8.7 - 10.5 HHCCT GFR/BSA.pred SerPlBld [id number]-KSC-[id number] >90.0 Normal 05/30/2024 59 - HHCCT Potassium SerPl-sCnc 4.1 mmol/L Normal 05/30/2024 3.4 - 5 .3 HHCCT BUN/Creat SerPl 26.0 Ratio Above high normal 05/30/2024 10 - 25 HHCCT Sodium SerPl-sCnc 138.0 mmol/L Normal 05/30/2024 136 - 14 5 HHCCT Glucose SerPl-mCnc 117.0 mg/dL Above high normal 05/30/2024 65 - 99 HHCCT Creat SerPl-mCnc 0.7 mg/dL Normal 05/30/2024 0.5 - 1.3 HH CCT Anion Gap Bld-sCnc 15.0 Normal 05/30/2024 7 - 17 HHCCT Chloride SerPl-sCnc 96.0 mmol/L Below low normal 05/30/2024 98 - 107 HHCCT BUN SerPl-mCnc 18.0 mg/dL Normal 05/30/2024 8 - [address] CO2 SerPl-sCnc 27.0 mmol/L Normal 05/30/2024 22 - 33 HH CCT Neutrophils/leuk NFr Bld Auto 77.9 % Normal 05/30/2024 HHCCT Hct VFr Bld Auto 43.0 % Normal 05/30/2024 39 - 54 HH CCT Monocytes num Bld Auto 1.62 Thou/uL Above high normal 05/30/2024 0.2 - 1.5 HHCCT Lymphocytes/leuk NFr Bld Auto 11.1 % Normal 05/30/2024 HHCCT MCH RBC Qn Auto 32.1 pg Above high normal 05/30/2024 27 - 31 HHCCT PMV Bld Auto 9.3 fL Normal 05/30/2024 7.5 - 12.5 HHCCT Platelet num Bld Auto 485.0 Thou/uL Above high normal 2023 150 - 450 H[facility]CT Imm Granulocytes/leuk NFr Bld Auto 1.7 % Normal 05/30/2024 HHCCT Monocytes/leuk NFr Bld Auto 8.8 % Normal 05/30/2024 [facility]CT RDW RBC Auto-Rto 13.4 % Normal 05/30/2024 11.5 - 14.5 HHCCT MCHC RBC Auto-mCnc 34.7 g/dL Normal 05/30/2024 30 - 36 HHCCT Basophils num Bld Auto 0.08 Thou/uL Normal 05/30/2024 0 - 0.2 HHCCT RBC num Bld Auto 4.64 Mil/uL Normal 05/30/2024 4.5 - 6.2 HHCCT MCV RBC Auto 93.0 fL Normal 05/30/2024 80 - 100 HHCCT Lymphocytes num Bld Auto 2.05 Thou/uL Normal 05/30/2024 1.5 - 4.5 HHCCT Hgb Bld-mCnc 14.9 g/dL Normal 05/30/2024 13 - 17.7 HHCCT Neutrophils num Bld Auto 14.33 Thou/uL Above high normal 05/30/2024 2 - 7.5 HHCCT Basophils/leuk NFr Bld Auto 0.4 % Normal 05/30/2024 HHCCT Eosinophil/leuk NFr Bld Auto 0.1 % Normal 05/30/2024 HHCCT WBC num Bld Auto 18.4 Thou/uL Above high normal 05/30/2024 4 - 11 HHCCT Eosinophil num Bld Auto 0.02 Thou/uL Normal 05/30/2024 0 - 0.7 HHCCT Imm Granulocytes num Bld Auto 0.31 Thou/uL Above high normal 05/30/2024 0 - 0.1 HHCCT HBV surface Ag Ser Ql Nonreactive Normal 05/30/2024 - CCT HIV 1+2 Ab+HIV1 p24 Ag Ser EIA-aCnc Nonreactive Normal 05/30/2024 - HHCCT HCV Ab s/co SerPl EIA 0.11 S/CO ratio Normal 05/30/2024 0 - 0.79 HHCCT Hepatitis C Ab Interpretation Nonreactive Normal 05/30/2024 - CCT Result Not Detected Normal 05/29/2024 - HHCCT Creat SerPl-mCnc 0.7 mg/dL Normal 05/29/2024 0.5 - 1.3 HH CCT Anion Gap Bld-sCnc 15.0 Normal 05/29/2024 7 - 17 HHCCT CO2 SerPl-sCnc 26.0 mmol/L Normal 05/29/2024 22 - 33 HH CCT Sodium SerPl-sCnc 138.0 mmol/L Normal 05/29/2024 136 - 14 5 HHCCT Calcium SerPl-mCnc 9.4 mg/dL Normal 05/29/2024 8.7 - 10.5 HHCCT ALT SerPl-cCnc 32.0 U/L Normal 05/29/2024 10 - 55 HHCC T Albumin/Glob SerPl 0.9 Ratio Below low normal 05/29/2024 1 - 3 HHCCT Albumin SerPl-mCnc 3.4 g/dL Below low normal 05/29/2024 3.5 - 5 HHCCT Chloride SerPl-sCnc 97.0 mmol/L Below low normal 05/29/2024 98 - 107 HHCCT Bilirub SerPl-mCnc 0.2 mg/dL Normal 05/29/2024 0.2 - 1 HHCCT ALP SerPl-cCnc 84.0 U/L Normal 05/29/2024 45 - 128 HH[facility] T GFR/BSA.pred SerPlBld [id number]-APP-KnVHqb >90.0 Normal 05/29/2024 59 - HHCCT Potassium SerPl-sCnc 4.1 mmol/L Normal 05/29/2024 3.4 - 5 .3 HHCCT BUN SerPl-mCnc 16.0 mg/dL Normal 05/29/2024 8 - [address] Globulin Ser Calc-mCnc 3.9 g/dL Normal 05/29/2024 1.5 - 3.9 HHCCT BUN/Creat SerPl 23.0 Ratio Normal 05/29/2024 10 - 25 HH CCT Prot SerPl-mCnc 7.3 g/dL Normal 05/29/2024 6.3 - 8.[address] Glucose SerPl-mCnc 105.0 mg/dL Above high normal 05/29/2024 65 - 99 HHCCT AST SerPl-cCnc 20.0 U/L Normal 05/29/2024 10 - 55 [facility] T Magnesium SerPl-mCnc 2.0 mg/dL Normal 05/29/2024 1.6 - 2. 7 HHCCT Prothrombin time 13.6 seconds Above high normal 05/29/2024 1 0 - 13.5 HHCCT INR PPP 1.2 Normal 05/29/2024 HHCCT Anticoagulant NO ANTI COAGULANT MEDS Normal 05/29/2024 HHCCT Hgb Bld-mCnc 14.7 g/dL Normal 05/29/2024 13 - 17.7 HHCCT MCH RBC Qn Auto 32.9 pg Above high normal 05/29/2024 27 - 31 HHCCT RDW RBC Auto-Rto 13.4 % Normal 05/29/2024 11.5 - 14.5 HHCCT Monocytes/leuk NFr Bld Auto 9.3 % Normal 05/29/2024 HHCCT Eosinophil/leuk NFr Bld Auto 0.1 % Normal 05/29/2024 HHCCT Eosinophil num Bld Auto 0.02 Thou/uL Normal 05/29/2024 0 - 0.7 HHCCT Platelet num Bld Auto 397.0 Thou/uL Normal 05/29/2024 150 - 450 HHCCT Imm Granulocytes num Bld Auto 0.21 Thou/uL Above high normal 05/29/2024 0 - 0.1 HHCCT MCHC RBC Auto-mCnc 35.3 g/dL Normal 05/29/2024 30 - 36 HHCCT Lymphocytes num Bld Auto 2.64 Thou/uL Normal 05/29/2024 1.5 - 4.5 HHCCT Neutrophils/leuk NFr Bld Auto 72.7 % Normal 05/29/2024 HHCCT Monocytes num Bld Auto 1.5 Thou/uL Normal 05/29/2024 0.2 - 1.5 HHCCT Basophils/leuk NFr Bld Auto 0.2 % Normal 05/29/2024 HHCCT MCV RBC Auto 93.0 fL Normal 05/29/2024 80 - 100 HHCCT Hct VFr Bld Auto 41.6 % Normal 05/29/2024 39 - 54 HH CCT WBC num Bld Auto 16.1 Thou/uL Above high normal 05/29/2024 4 - 11 HHCCT Imm Granulocytes/leuk NFr Bld Auto 1.3 % Normal 05/29/2024 HHCCT RBC num Bld Auto 4.47 Mil/uL Below low normal 05/29/2024 4.5 - 6.2 HHCCT Lymphocytes/leuk NFr Bld Auto 16.4 % Normal 05/29/2024 HHCCT Neutrophils num Bld Auto 11.67 Thou/uL Above high normal 05/29/2024 2 - 7.5 HHCCT Basophils num Bld Auto 0.03 Thou/uL Normal 05/29/2024 0 - 0.2 HHCCT PMV Bld Auto 9.1 fL Normal 05/29/2024 7.5 - 12.5 HHCCT Encounters Encounter Type Encounter Reason Primary Diagnosis Location Date Inpatient Osteomyelitis, unspecified Osteomyelitis, unspecified [facility] 05/28/2024 Care Team Organization Name Specialty Phone Email Start Date End Da idnia [facility] 06/01/2024 10/23/2024 [facility] 05/29/2024
== END 2025-03-10 11:48 | disposition home or self-care (01) ==
LOC: HO.HNS 10:55
PROVIDERS: PCP Family Medicine; Visit Provider Physician Assistant
DX: M86.9 Osteomyelitis, unspecified (principal)
CPT/HCPCS: 99212

== ENCOUNTER 2025-03-10 10:54 | Outpatient (REF) | payer OTHER, SELFPAY ==
--- NOTE | ~2025-03-10 | XR_ITS ---
Exam: Three-view lumbar spine. TECHNIQUE: NIQUE: Lateral: Flexion, neutral and extension view x-rays of the lumbar spine. Prior: MRI of June 26, 2024 HISTORY: Prior discitis and osteophytes at L4-5 FINDINGS: There are 5 nonrib-bearing lumbar sequence. There is a transitional S1 segment. There is 17 degrees levoscoliosis with apex at L4. There is chronic mild wedging of L1 and moderate disc space narrowing with endplate osteophytes at T12-L1.. L2-3 demonstrates mild disc space narrowing and 4 mm retrolisthesis during extension. Levels aligned during flexion. L4-5 demonstrates severe disc space narrowing with endplate sclerosis and osteophytes. L5-S1 demonstrates minimal disc space narrowing and subtle retrolisthesis with facet sclerosis. XR/XR lumbar spine 4V min IMPRESSION: L2-3 demonstrates evidence of mild instability. Moderate degenerative disc disease at T12-L1. There are severe degenerative changes at L4-5 with history of discitis and osteomyelitis demonstrated on MRI June 26, 2024. There is mild levoscoliosis. Electronically signed by: Richard Self MD 03/10/2025 11:34 AM EDT
== END 2025-03-10 10:55 | disposition home or self-care (01) ==
LOC: HO.XRAY 10:54
PROVIDERS: PCP Family Medicine; Visit Provider Physician Assistant
DX: M86.9 Osteomyelitis, unspecified (principal)
CPT/HCPCS: 72110; 99212

== ENCOUNTER → 2025-03-10 11:02 | Outpatient (BNV) | payer OTHER, SELFPAY | PROVIDERS: PCP Family Medicine; Visit Provider Radiology Diagnostic Radiology | DX: M51.369 Other intervertebral disc degeneration, lumbar region without mention of lumbar back pain or lower extremity pain (principal) | CPT/HCPCS: 72110 ==